=== PATIENT | female | born 1950 | race Caucasian/White ===

== ENCOUNTER → 2018-01-24 | Outpatient (CLI) | payer OTHER ==
[~2018-01-24] MED LIST: ESTR0.62 PO; GUAI600T47 PO; LEVO125T PO; LORSARTAN; PARO30TA45 PO
--- NOTE | 2018-01-24 09:38 | RAD ---
DATE: 01/24/2018 EXAM: DIGITAL SCREEN BILAT W/CAD HISTORY: Routine screening COMPARISON: 09/14/2015 This study was interpreted with the benefit of Computerized Aided Detection (CAD). The breast parenchyma shows scattered fibroglandular densities. Breast parenchyma level B. FINDINGS: The fibroglandular tissues are heterogeneous and somewhat nodular in character. There is a small opacity projected over the posteromedial aspect of the left breast on the cc view which appears more prominent than on previous studies. A definite correlate is not seen on the oblique view. No other new or enlarging breast densities are seen. No suspicious microcalcifications are evident. IMPRESSION: Possible left breast nodule. Diagnostic mammography to include spot compression cc and probably tomosynthesis imaging is suggested for further evaluation. If a suspicious density persists, left breast ultrasound would then be indicated. BI-RADS CATEGORY: 0 INCOMPLETE: NEEDS ADDITIONAL IMAGING EVALUATION AND/OR PRIOR MAMMOGRAMS FOR COMPARISON. RECOMMENDED FOLLOW-UP: ADD ADDITIONAL IMAGING PQRS compliance statement: Patient information was entered into a reminder system with a target due date for the next mammogram. Mammography is a sensitive method for finding small breast cancers, but it does not detect them all and is not a substitute for careful clinical examination. A negative mammogram does not negate a clinically suspicious finding and should not result in delay in biopsying a clinically suspicious abnormality. "Our facility is accredited by the [employer] Mammography [employer]."
== END | disposition home or self-care (01) ==
LOC: MAMMO 07:42
PROVIDERS: ATTEND Obstetrics & Gynecology
DX: Z12.31 Encounter for screening mammogram for malignant neoplasm of breast (principal)
CPT/HCPCS: 77067

== ENCOUNTER → 2018-02-12 | Outpatient (CLI) | payer OTHER ==
--- NOTE | 2018-02-12 13:50 | RAD ---
DATE: February 12, 2018 EXAM: DIGITAL DIAGNOSTIC LT, BREAST LEFT SONOGRAM HISTORY: Further evaluation of nodule seen within the left breast on screening mammogram dated January 24, 2018. COMPARISON: January 24, 2018 and September 14, 2015 mammograms. DIAGNOSTIC LEFT-SIDED MAMMOGRAPHY: Focal digital compression views of the left breast in the CC and 90 degree projections and a standard 2-D 90 degree projection of the left breast were performed. Again seen is the small nodular density located 10 cm from the nipple measuring 6 mm in size located straight back from the nipple in the CC projection. 90 degree view demonstrates nodularity within the upper aspect of the left breast and therefore, the nodule may be located at the 12:00 position. Focal compression view of the upper aspect of the left breast in the 90 degree projection was performed and no discrete nodule can be identified. This nodule could be seen in 2016 and is unchanged. LEFT BREAST SONOGRAPHY: High-resolution sonography of the upper aspect left breast in the 10:00 to 2:00 positions was performed. At the 1:00 position, 1.5 cm from the nipple, a small hypoechoic nodule is seen which demonstrates a thin echogenic capsule and smooth margins. It is wider than it is tall. Therefore, it most likely represents a benign nodule. Given it's close proximity to the nipple, this probably does not represent the mammographic nodule. Therefore, recommend a 6 month follow-up mammogram and sonogram of the left breast to ensure stability of these 2 findings. This study was interpreted with the benefit of Computerized Aided Detection (CAD). IMPRESSION: Probable benign sonographic and mammographic nodules of the left breast. Recommend a 6 month follow-up mammogram and sonogram of the left breast for further evaluation. Note-I discussed the findings and recommendation for 6 month follow-up examination with the patient after completion of the study on February 12, 2018. BI-RADS CATEGORY: 3 PROBABLE BENIGN-SHORT TERM F/U RECOMMENDED FOLLOW-UP: 6M 6 MONTH FOLLOW-UP PQRS compliance statement: Patient information was entered into a reminder system with a target due date August 12, 2018 for the next mammogram. Mammography is a sensitive method for finding small breast cancers, but it does not detect them all and is not a substitute for careful clinical examination. A negative mammogram does not negate a clinically suspicious finding and should not result in delay in biopsying a clinically suspicious abnormality. "Our facility is accredited by the [employer] Mammography [employer]."
== END | disposition home or self-care (01) ==
LOC: MAMMO 10:15
PROVIDERS: ATTEND Obstetrics & Gynecology
DX: R92.8 Other abnormal and inconclusive findings on diagnostic imaging of breast (principal)
CPT/HCPCS: 76641; 77065

== ENCOUNTER → 2018-11-19 | Outpatient (CLI) | payer OTHER ==
--- NOTE | 2018-11-20 11:55 | RAD ---
EXAM: DIGITAL DIAGNOSTIC LT, BREAST LEFT HISTORY: short-term imaging followup of probably benign findings in the left breast. COMPARISON: Prior mammographic imaging dating back to 09/14/2015 Left full field craniocaudal and mediolateral oblique images were obtained using digital technique. This study was interpreted with the benefit of Computerized Aided Detection (CAD). Breast Density: The breast parenchyma shows scattered fibroglandular densities. Breast parenchyma level B. FINDINGS: The small nodular density in the left breast is essentially unchanged by mammographic imaging. Therefore this was further assessed by ultrasound. High-resolution left breast sonography was performed in the left breast from the 10:00-2:00 position. The previously seen hypoechoic nodule approximately 1.5 cm from the nipple measures 0.5 x 0.3 x 0.6 cm, essentially stable accounting for differences in technique. In addition, at the 11:30 position 10 cm from the nipple a 0.6 x 0.2 x 0.5 cm hypoechoic nodule, parallel in orientation with gentle lobulations is now seen likely corresponding to mammographic abnormality. IMPRESSION: Left breast nodules for which short interval follow-up is recommended. BI-RADS CATEGORY: 3 PROBABLY BENIGN FINDING(S)-SHORT INTERVAL FOLLOW-UP SUGGESTED RECOMMENDED FOLLOW-UP: 6M 6 MONTH FOLLOW-UP follow-up mammography and ultrasound in 6 months is recommended to establish stability. PQRS compliance statement: Patient information was entered into a reminder system with a target due date 05/21/2020 for the next mammogram. Mammography is a sensitive method for finding small breast cancers, but it does not detect them all and is not a substitute for careful clinical examination. A negative mammogram does not negate a clinically suspicious finding and should not result in delay in biopsying a clinically suspicious abnormality. "Our facility is accredited by the [employer] Mammography [employer]." MTDD
== END | disposition home or self-care (01) ==
LOC: MAMMO 09:27
PROVIDERS: ATTEND Obstetrics & Gynecology
DX: N63.22 Unspecified lump in the left breast, upper inner quadrant (principal)
CPT/HCPCS: 76641; 77065

== ENCOUNTER → 2019-07-15 | Outpatient (CLI) | payer OTHER ==
--- NOTE | 2019-07-16 17:58 | RAD ---
DATE: 07/15/2019 EXAM: MAMMO TERRANCEAnastasiia BARRAT, BREAST LEFT HISTORY: Left breast nodule COMPARISON: 11/19/2018 left unilateral mammographic exam, 02/12/2018 diagnostic mammographic images of the left breast, 01/24/2018 screening mammographic exam, 09/14/2015 screening mammographic exam This study was interpreted with the benefit of Computerized Aided Detection (CAD). Breast Density: SCATTERED The breast parenchyma shows scattered fibroglandular densities. Breast parenchyma level B. FINDINGS: No suspicious calcification or distortion. Small asymmetries and masses are stable. Ultrasound imaging of the left breast was performed. There is a 1:00 region mass 1.5 cm from the nipple measuring 0.5 cm x 0.4 cm tall by 0.4 cm. No flow within it. It is well-circumscribed and heterogeneously hypoechoic. It is stable. No significant change compared to 02/12/2018. No other masses identified. IMPRESSION: Stable left breast mass. Follow-up in 1 year at the time of annual mammography is recommended. Ultrasound may be needed at that time. BI-RADS CATEGORY: 3 PROBABLY BENIGN FINDING(S)-SHORT INTERVAL FOLLOW-UP SUGGESTED RECOMMENDED FOLLOW-UP: 12M 12 MONTH FOLLOW-UP PQRS compliance statement: Patient information was entered into a reminder system with a target due date for the next mammogram. Mammography is a sensitive method for finding small breast cancers, but it does not detect them all and is not a substitute for careful clinical examination. A negative mammogram does not negate a clinically suspicious finding and should not result in delay in biopsying a clinically suspicious abnormality. "Our facility is accredited by the [employer] Mammography Program."
== END | disposition home or self-care (01) ==
LOC: MAMMO 09:23
PROVIDERS: ATTEND Obstetrics & Gynecology
DX: N63.20 Unspecified lump in the left breast, unspecified quadrant (principal)
CPT/HCPCS: 76641; 77066; G0279; 77062

== ENCOUNTER → 2020-02-26 | Outpatient (CLI) | payer OTHER, MEDICARE ==
--- NOTE | 2020-02-26 10:25 | KCIC ---
EXAM: DUAL ENERGY X-RAY ABSORPTIOMETRY (DEXA). HISTORY: Postmenopausal screening. FINDINGS: The lowest measured T-score is -1.1 in the left femur, based on a bone mineral density of 0.804 g/cm^2. Refer to the worksheets for full detail. No comparison examinations are available. IMPRESSION: Low bone mass. Bone mineral density yields a T-score between -1.0 and -2.5. Fracture risk is increased. FRAX was not calculated. METHODOLOGY: Dual energy x-ray absorptiometry was performed to measure bone mineral density. The following analysis is based on the 2019 Official Positions of the International Society for Clinical Densitometry: Measurements of the hips and the average of L1-L4 are preferred. When the spine and/or hip cannot be feasibly measured or interpreted, or in the setting of hyperparathyroidism, distal radial bone mineral density may be measured. The lumbar spine T-score is based on the average bone mineral density of L1-L4. In the setting of artifact or anatomic abnormality, some lumbar levels may be excluded, and the remaining levels used for calculation. A single lumbar level is not used for diagnosis, and if only a single level is available for assessment, another anatomic site will be used to assign a diagnosis. The hip T-score is based on the bone mineral density measurement of the femoral neck or total proximal femur of either side, whichever is lowest. Bilateral mean values are not used for diagnosis. The forearm T-score is derived from 33% of the distal radius of the nondominant forearm. For postmenopausal and perimenopausal women, and men age 50 or older, of all ethnic groups, T-scores are calculated through comparison of the current measurement with the NHANES III database standard for females aged 20-29 years. The lowest T-score of the evaluated anatomic sites is used to assign a diagnosis based on the World Health Organization densitometric classification. In premenopausal females and males younger than age 50, a Z-score is calculated based on population specific reference data for patient sex and self-reported ethnicity. Electronically signed by: Gina Guidry MD (02/26/2020 10:22 AM) [id number]
== END | disposition home or self-care (01) ==
LOC: KCIC DEXA 07:57
PROVIDERS: ATTEND Family Medicine
DX: Z78.0 Asymptomatic menopausal state (principal)
CPT/HCPCS: 77080

== ENCOUNTER → 2020-07-09 | Outpatient (CLI) | payer MEDICARE, OTHER ==
[~2020-07-09] MED LIST changes: +ACET325T21 PO; +CALC500T31 PO; +ESTR0.5T PO; +LOSA1TAB19 PO; +PARO20TA3 PO
== END ==
LOC: LAB 10:01
PROVIDERS: ATTEND Surgery
DX: Z01.812 Encounter for preprocedural laboratory examination (principal); K43.9 Ventral hernia without obstruction or gangrene; Z20.822 Contact with and (suspected) exposure to COVID-19
CPT/HCPCS: U0003

== ENCOUNTER 2020-08-18 06:55 | Emergency (ER) | payer MEDICARE ==
[~2020-08-18] VITALS: Ht 165.1 cm; Wt 81.1 kg
--- NOTE | 2020-08-18 07:38 | PHYS DOC ---
Past Medical History Smoking Status: Former Smoker General Adult EDM: Chief Complaint: ABDOMINAL PAIN HPI: HPI: Patient is a 69 year old female who presented to ER due to lower abdominal pain since last Sunday. Patient had umbilical hernia surgery done by Dr. Jackson last month. The pain is mostly on the left side, radiates to her left groin area. Review of Systems: Review of Systems: Constitutional: Denies fever or chills. [] Eyes: Denies change in visual acuity. [] HENT: Denies nasal congestion or sore throat. [] Respiratory: Denies cough or shortness of breath. [] Cardiovascular: Denies chest pain or edema. [] GI: Positive for abdominal pain, no nausea, vomiting, bloody stools or diarrhea. [] : Denies dysuria. [] Musculoskeletal: Denies back pain or joint pain. [] Integument: Denies rash. [] Neurologic: Denies headache, focal weakness or sensory changes. [] Endocrine: Denies polyuria or polydipsia. [] Lymphatic: Denies swollen glands. [] Psychiatric: Denies depression or anxiety. [] Heart Score: C/O Chest Pain: N/A Risk Factors: Risk Factors: DM, Current or recent (<one month) smoker, HTN, HLP, family history of CAD, obesity. Risk Scores: Score 0 - 3: 2.5% MACE over next 6 weeks - Discharge Home Score 4 - 6: 20.3% MACE over next 6 weeks - Admit for Clinical Observation Score 7 - 10: 72.7% MACE over next 6 weeks - Early Invasive Strategies Allergies: Allergies: Allergies Coded Allergies Type Severity Reaction Last Updated Verified Penicillins Allergy Intermediate Hives 09/21/15 Yes adhesive Adverse Reaction Intermediate rash 08/18/20 Yes corn Adverse Reaction Intermediate headaches, vomiting 08/18/20 Yes lactase Adverse Reaction Intermediate constipation 08/18/20 Yes latex Adverse Reaction Intermediate Rash 07/12/20 Yes Physical Exam: PE: Constitutional: Well developed, well nourished, no acute distress, non-toxic appearance. [] HENT: Normocephalic, atraumatic, bilateral external ears normal, oropharynx moist, no oral exudates, nose normal. [] Eyes: PERRLA, EOMI, conjunctiva normal, no discharge. [] Neck: Normal range of motion, no tenderness, supple, no stridor. [] Cardiovascular:Heart rate regular rhythm, no murmur [] Lungs & Thorax: Bilateral breath sounds clear to auscultation [] Abdomen: Bowel sounds normal, soft, There is tenderness in suprapubic area, no masses, no pulsatile masses. [] Skin: Warm, dry, no erythema, no rash. [] Back: No tenderness, no CVA tenderness. [] Extremities: No tenderness, no cyanosis, no clubbing, ROM intact, no edema. [] Neurologic: Alert and oriented X 3, normal motor function, normal sensory function, no focal deficits noted. [] Psychologic: Affect normal, judgement normal, mood normal. [] Current Patient Data: Labs: Laboratory Tests Test 08/18/20 07:20 08/18/20 07:50 Urine Collection Type Void Urine Color Yellow Urine Clarity Clear Urine pH 5.0 Urine Specific Rowe 1.025 Urine Protein 30 mg/dL Urine Glucose (UA) Negative mg/dL Urine Ketones (Stick) 15 mg/dL Urine Blood Large Urine Nitrite Negative Urine Bilirubin Negative Urine Urobilinogen Dipstick 0.2 mg/dL Urine Leukocyte Esterase Negative Urine RBC >40 /HPF Urine WBC Occ /HPF Urine Squamous Epithelial Cells Mod /LPF Urine Bacteria Few /HPF Urine Mucus Marked /LPF White Blood Count 12.6 x10^3/uL Red Blood Count 5.00 x10^6/uL Hemoglobin 14.2 g/dL Hematocrit 42.0 % Mean Corpuscular Volume 84 fL Mean Corpuscular Hemoglobin 28 pg Mean Corpuscular Hemoglobin Concent 34 g/dL Red Cell Distribution Width 13.1 % Platelet Count 240 x10^3/uL Neutrophils (%) (Auto) 89 % Lymphocytes (%) (Auto) 6 % Monocytes (%) (Auto) 5 % Eosinophils (%) (Auto) 0 % Basophils (%) (Auto) 0 % Neutrophils # (Auto) 11.3 x10^3/uL Lymphocytes # (Auto) 0.7 x10^3/uL Monocytes # (Auto) 0.6 x10^3/uL Eosinophils # (Auto) 0.0 x10^3/uL Basophils # (Auto) 0.1 x10^3/uL Segmented Neutrophils % 89 % Lymphocytes % 8 % Monocytes % 3 % Platelet Estimate Adequate Sodium Level 140 mmol/L Potassium Level 3.2 mmol/L Chloride Level 103 mmol/L Carbon Dioxide Level 23 mmol/L Anion Gap 14 Blood Urea Nitrogen 25 mg/dL Creatinine 1.2 mg/dL Estimated GFR (Cockcroft-Gault) 44.3 BUN/Creatinine Ratio 21 Glucose Level 140 mg/dL Calcium Level 8.9 mg/dL Magnesium Level 1.9 mg/dL Total Bilirubin 0.8 mg/dL Aspartate Amino Transf (AST/SGOT) 20 U/L Alanine Aminotransferase (ALT/SGPT) 33 U/L Alkaline Phosphatase 79 U/L Total Protein 7.5 g/dL Albumin 3.7 g/dL Albumin/Globulin Ratio 1.0 Lipase 50 U/L Current Medications Medications (Trade) Dose Ordered Sig/Radha Route PRN Reason Start Time Stop Time Status Last Admin Dose Admin Ketorolac Tromethamine (Toradol 15mg Vial) 15 mg 1X ONCE IVP 08/18/20 08:30 08/18/20 08:31 DC 08/18/20 09:20 Sodium Chloride 1,000 ml @ 1,000 mls/hr 1X ONCE IV 08/18/20 08:30 08/18/20 09:29 DC 08/18/20 09:17 Iohexol (Omnipaque 300 Mg/ml) 60 ml 1X ONCE IV 08/18/20 08:30 08/18/20 08:31 DC 08/18/20 08:36 Potassium Chloride (Klor-Con) 30 meq 1X ONCE PO 08/18/20 09:30 08/18/20 09:31 DC 08/18/20 09:27 EKG: EKG: [] Radiology/Procedures: Radiology/Procedures: [facility] [address] [place], [place] [id number] IMAGING REPORT Signed PATIENT: MICHAEL WRAY ACCOUNT: [id number] : 1950 LOCATION: ER AGE: 69 SEX: F EXAM STATUS: REG ER ORD. PHYSICIAN: DONNY RUBIO DO REASON: LOWER ABDOMINAL PAIN PROCEDURE: CT ABD PELV W/ IV CONTRST ONLY EXAM: CT Abdomen and Pelvis with IV contrast CLINICAL HISTORY: Reason: LOWER ABDOMINAL PAIN COMPARISON: none TECHNIQUE: Helical CT of the abdomen and pelvis was performed following the administration of intravenous contrast. Axial, coronal and sagittal reformatted images were generated. PQRS compliance statement - One or more of the following individualized dose reduction techniques were utilized for this study: 1. Automated exposure control 2. Adjustment of the mA and/or kV according to patient size 3. Use of iterative reconstruction technique FINDINGS: Lower Chest: Linear opacities right greater than left lower lobes likely scarring/atelectasis. Moderate hiatal hernia. Abdomen and Pelvis: Mild hepatic hypoattenuation may be seen with fatty liver. No focal liver lesion. Gallbladder is normal. No biliary duct dilatation. Pancreas, spleen and adrenal glands are unremarkable. There is moderate left hydronephrosis and proximal left hydroureter to level of a 7 mm calculus in the proximal left ureter. Delayed left nephrogram. Additional nonobstructing left renal calculi. Punctate nonobstructing right upper pole renal calculi. Bladder is decompressed but otherwise unremarkable. Moderate colonic stool content with distention of the cecum. No pericecal inflammatory change. Appendix is not convincingly seen. No abdominal or pelvic ascites. No abdominal or pelvic lymphadenopathy. No abnormal small or large bowel dilatation. Aorta is normal in caliber. Bones: No aggressive osseous lesion is seen. Degenerative changes of the spine are noted. Trace anterolisthesis of L3 and L4. IMPRESSION: 7 mm calculus within the proximal left ureter resulting in moderate left hydro nephrosis and proximal left ureter. Additional nonobstructing bilateral renal calculi are seen. Mild hepatic hypoattenuation may be seen with fatty liver Electronically signed by: Alfonzo Rivera MD (08/18/2020 8:58 AM) [id number] DICTATED and SIGNED BY: ALFONZO RIVERA MD DATE: 08/18/20 [id number] 0 Course & Med Decision Making: Course & Med Decision Making Pertinent Labs and Imaging studies reviewed. (See chart for details) Patient is a 69-year-old female who was found to have kidney stone, patient was given pain medication in the ER, she felt much better. Patient will be discharged home, she will need to follow-up with urology for outpatient evaluation and treatment. [place] Disclaimer: Estelita Disclaimer: This electronic medical record was generated, in whole or in part, using a voice recognition dictation system. Departure Departure Impression: Primary Impression: Kidney stone on left side Disposition: 01 DC HOME SELF CARE/HOMELESS Condition: IMPROVED Referrals: YISEL GUPTA MD (PCP) PLEASE CALL [facility] FOR FOLLOW UP THIS WEEK. The phone number is [phone] Patient Instructions: Kidney Stones Additional Instructions: Thank you for visiting our Emergency Department. We appreciate you trusting us with your care. If any additional problems come up don't hesitate to return to visit us. Please follow up with your primary care provider so they can plan additional care if needed and know about the problem that you had. If symptoms worsen come back to the Emergency Department. Any concerning symptoms that start such as chest pain, shortness of air, weakness or numbness on one side of the body, running high fevers or any other concerning symptoms return to the ER. Scripts Ondansetron Hcl (ZOFRAN) 4 Mg Tablet 1 TAB PO Q6HRS PRN for NAUSEA, #15 TAB Prov: DONNY RUBIO DO 08/18/20 Tamsulosin Hcl (FLOMAX) 0.4 Mg Cap.er.24h 1 CAP PO DAILY for 10 Days, #10 CAP 11 Refills Prov: DONNY RUBIO DO 08/18/20 Naproxen Sodium (ANAPROX DS) 550 Mg Tablet 1 TAB PO BID PRN for PAIN for 15 Days, #30 TAB 0 Refills Prov: DONNY RUBIO DO 08/18/20 DONNY RUBIO DO Aug 18, 2020 07:38
[2020-08-18 07:51] LABS: BILIRUBIN,URINE NEGATIVE (NEG); CLARITY,URINE CLEAR; COLOR,URINE YELLOW; NITRITE,URINE NEGATIVE (NEG); PROTEIN,URINE 30 mg/dL (NEG-TRACE); UROBILINOGEN,URINE 0.2 mg/dL (0.2 mg/dL)
[2020-08-18 08:02] LABS: BACTERIA,URINE FEW /HPF (0-FEW); RBC,URINE >40 /HPF (0-2); WBC,URINE OCC /HPF (0-4)
[2020-08-18 08:02] LABS: BASO # 0.1 x10^3/uL (0.0-0.2); BASO % 0 % (0-3); EOS % 0 % (0-3); HEMOGLOBIN 14.2 g/dL (12.0-15.5); LYMPH # 0.7 x10^3/uL (1.0-4.8); LYMPH % 6 % (24-48); MEAN CORPUSCULAR HEMOGLOBIN 28 pg (25-35); MEAN CORPUSCULAR HGB CONC 34 g/dL (31-37); MEAN CORPUSCULAR VOLUME 84 fL (79-100); MONO # 0.6 x10^3/uL (0.0-1.1); MONO % 5 % (0-9); NEUT # 11.3 x10^3/uL (1.8-7.7); NEUT % 89 % (31-73); PLATELET COUNT 240 x10^3/uL (140-400); RED CELL DISTRIBUTION WIDTH 13.1 % (11.5-14.5); WHITE BLOOD COUNT 12.6 x10^3/uL (4.0-11.0)
[2020-08-18 08:15] LABS: CALCIUM 8.9 mg/dL (8.5-10.1); CREATININE 1.2 mg/dL (0.6-1.0); GFR 44.3; POTASSIUM 3.2 mmol/L (3.5-5.1)
[2020-08-18 08:20] LABS: ALBUMIN 3.7 g/dL (3.4-5.0); MAGNESIUM 1.9 mg/dL (1.8-2.4); TOTAL BILIRUBIN 0.8 mg/dL (0.2-1.0); TOTAL PROTEIN 7.5 g/dL (6.4-8.2)
[2020-08-18] MEDS ORDERED: KETOROLAC 15 MG/ML VIAL. IVP ONE (08:30)
[2020-08-18] MEDS ORDERED: IOHEXOL 300 MG/ML 100ML VIAL. IV ONE (08:30)
[2020-08-18] MEDS ORDERED: IV NORMAL SALINE 1000ML BAG 1,000 ML IV ONE (08:30)
--- NOTE | 2020-08-18 09:01 | RAD ---
EXAM: CT Abdomen and Pelvis with IV contrast CLINICAL HISTORY: Reason: LOWER ABDOMINAL PAIN COMPARISON: none TECHNIQUE: Helical CT of the abdomen and pelvis was performed following the administration of intrave nous contrast. Axial, coronal and sagittal reformatted images were generated. PQRS compliance statement - One or more of the following individualized dose reduction techniques wer e utilized for this study: 1. Automated exposure control 2. Adjustment of the mA and/or kV according to patient size 3. Use of iterative reconstruction technique FINDINGS: Lower Chest: Linear opacities right greater than left lower lobes likely scarring/atelectasis. Moderate hiatal her yuliet. Abdomen and Pelvis: Mild hepatic hypoattenuation may be seen with fatty liver. No focal liver lesion. Gallbladder is norm al. No biliary duct dilatation. Pancreas, spleen and adrenal glands are unremarkable. There is modera te left hydronephrosis and proximal left hydroureter to level of a 7 mm calculus in the proximal left ureter. Delayed left nephrogram. Additional nonobstructing left renal calculi. Punctate nonobstructi ng right upper pole renal calculi. Bladder is decompressed but otherwise unremarkable. Moderate colon ic stool content with distention of the cecum. No pericecal inflammatory change. Appendix is not conv incingly seen. No abdominal or pelvic ascites. No abdominal or pelvic lymphadenopathy. No abnormal sm all or large bowel dilatation. Aorta is normal in caliber. Bones: No aggressive osseous lesion is seen. Degenerative changes of the spine are noted. Trace anterolisthe sis of L3 and L4. IMPRESSION: 7 mm calculus within the proximal left ureter resulting in moderate left hydronephrosis and proximal left ureter. Additional nonobstructing bilateral renal calculi are seen. Mild hepatic hypoattenuation may be seen with fatty liver Electronically signed by: Alfonzo Contreras MD (08/18/2020 8:58 AM) [id number]
[2020-08-18 09:24] LABS: % LYMPHS 8 % (24-48); % MONOS 3 % (0-10); % SEGS 89 % (35-66); PLT ESTIMATE ADEQUATE (ADEQUATE)
[2020-08-18] MEDS ORDERED: POTASSIUM CHLORIDE 10 MEQ TABLET.ER. PO ONE (09:30)
[2020-08-18] MEDS ORDERED: NAPR-682 PO (10:42)
[2020-08-18] MEDS ORDERED: ONDA4TAB7 PO (10:42)
[2020-08-18] MEDS ORDERED: TAMS0.4C97 PO (10:42)
[2020-08-18 11:30] VITALS: BP 142/84
== END 2020-08-18 11:33 | disposition home or self-care (01) ==
LOC: ER 06:55
DX: N13.2 Hydronephrosis with renal and ureteral calculous obstruction (principal); R10.32 Left lower quadrant pain; F17.200 Nicotine dependence, unspecified, uncomplicated; Z88.0 Allergy status to penicillin; Z91.040 Latex allergy status; Z88.8 Allergy status to other drugs, medicaments and biological substances
CPT/HCPCS: 36415; 74177; 80053; 81001; 83690; 83735; 85007; 85025; 96361; 96374; 99285; J1885; J7030; Q9967

== ENCOUNTER → 2021-02-09 | Outpatient (CLI) | payer MEDICARE ==
[~2021-02-09] MED LIST changes: +NAPR-682 PO; +ONDA4TAB7 PO; +TAMS0.4C97 PO
--- NOTE | 2021-02-09 17:15 | KCIC ---
Bilateral digital screening mammograms with 3-D tomosynthesis: Reason for examination: Routine screening. Comparison is made to previous studies dated back to 09/14/2015. Bilateral mammograms in CC and oblique projections were obtained with 2-D imaging and 3-D tomosynthes is imaging on a Siemens Inspiration unit and reviewed on the workstation. Interpretation was made wit h the benefit of CAD. The skin and nipples show no abnormalities. No abnormal axillary lymph nodes are seen. The breast par enchyma shows scattered fatty and fibroglandular density. (Breast density: Category B.) There continu es to be small nodule at the 12:00 position posteriorly in the left breast which is stable. There are no new dominant masses, suspicious calcifications or architectural distortion. Impression: No evidence of malignancy. Recommend routine screening. BI-RAD Category 2: Benign. "Our facility is accredited by the [employer] Mammography Program." This patient's information has been entered into a reminder system for the patient to be notified wit h the results of her examination and a target date for the next mammogram. Electronically signed by: Alysia Bravo MD (02/09/2021 5:12 PM) [id number]
== END ==
LOC: KCIC MAMMO 10:36
PROVIDERS: ATTEND Obstetrics & Gynecology
DX: Z12.31 Encounter for screening mammogram for malignant neoplasm of breast (principal)
CPT/HCPCS: 77063; 77067